=== PATIENT | male | born 1985 | race Caucasian/White ===

== ENCOUNTER 2018-01-27 10:21 | Day surgery (SDC) | payer OTHER ==
[2018-01-27] MEDS ORDERED: LR 1,000 ML IV ONE ×2 (10:47→10:48)
[2018-01-27] MEDS ORDERED: fentaNYL 100 MCG/2 ML INJ ONE (11:47)
[2018-01-27] MEDS ORDERED: PROPOFOL 200 MG/20 ML VIAL ONE ×3 (11:47→12:09)
--- NOTE | 2018-01-27 11:55 | PDGENHP ---
History & Physical Chief Complaint: FHx colon cancer brohter age 42, diarrhrea History of Present Illness: fhx cc brother young age. 2 weeks of diarrhea Pertinent Past, Social, Family History: 1 pp week tobacco. 1 alcohol drink weekly. MMJ. Fhx brother colon cancer age 40. PMH HTN, obesity, bipolar, gerd Relevant Physical Exam: A+Ox3. CTA. S1S2, RRR. +BS, soft nt Cardiorespiratory Assessment: class 3
--- NOTE | 2018-01-27 11:56 | PDANEPAE ---
ANE History of Present Illness colonoscopy ANE Past Medical History - Cardiovascular History Hx Hypertension: No Hx Arrhythmias: No Hx Chest Pain: No Hx Coronary Artery / Peripheral Vascular Disease: No Hx CHF / Valvular Disease: No Hx Palpitations: No Cardiovascular History Comment: ELEVATED BP - NO MEDS - Pulmonary History Hx COPD: No Hx Asthma/Reactive Airway Disease: No Hx Recent Upper Respiratory Infection: No Hx Oxygen in Use at Home: No Hx Sleep Apnea: Yes Sleep Apnea Screening Result - Last Documented: Negative Pulmonary History Comment: INHALER W/URIs. SLEEP APNEA - CPAP - Neurologic History Hx Cerebrovascular Accident: No Hx Seizures: No Hx Dementia: No - Endocrine History Hx Diabetes: No Hypothyroid: No Hyperthyroid: No Obesity: severe - Renal History Hx Renal Disorders: No - Liver History Hx Hepatic Disorders: No Hepatic History Comment: FATTY LIVER - Neurological & Psychiatric Hx Hx Neurological and Psychiatric Disorders: No Neurological / Psychiatric History Comment: ANXIETY. BIPOLAR - Cancer History Hx Cancer: No - Congenital Disorder History Hx Congenital Disorders: No - GI History GERD: severe Hx Gastrointestinal Disorders: Yes Gastrointestinal History Comment: ACID REFLUX - Other Health History Other Health History: NEG - Chronic Pain History Chronic Pain: Yes (KNEE & ANKLE) - Surgical History Prior Surgeries: TONSILLECTOMY ANE Review of Systems Review of Systems: - Exercise capacity METS (RN): 4 METS ANE Patient History - Allergies Allergies/Adverse Reactions: No Known Allergies Allergy (Unverified 01/18/18 14:22) - Home Medications Home Medications: Advil 01/18/18 [Last Taken Unknown] Aleve 01/18/18 [Last Taken Unknown] Claritin 01/18/18 [Last Taken Unknown] Effexor Xr 01/18/18 [Last Taken Unknown] Fish Oil Concentrate Softgel 01/18/18 [Last Taken Unknown] Klonopin 01/18/18 [Last Taken Unknown] Pickwick Carbonate 01/18/18 [Last Taken Unknown] Omeprazole 01/18/18 [Last Taken Unknown] Xanax 01/18/18 [Last Taken Unknown] - NPO status NPO Since - Liquids (Date): 01/27/18 NPO Since - Liquids (Time): 01:00 NPO Since - Solids (Date): 01/26/18 NPO Since - Solids (Time): 19:00 - Smoking Hx Smoking Status: Former smoker - Family Anes Hx Family Hx Anesthesia Complications: NEG ANE Labs/Vital Signs - Vital Signs Blood Pressure: 143/85 Heart Rate: 60 Respiratory Rate: 18 O2 Sat (%): 96 Height: 193.04 cm Weight: 158.757 kg ANE Physical Exam - Airway Neck exam: FROM Mallampati Score: Class 1 Mouth exam: normal dental/mouth exam - Pulmonary Pulmonary: clear to auscultation - Cardiovascular Cardiovascular: regular rate and rhythym ANE Anesthesia Plan Anesthesia Plan: GA with mask
[2018-01-27] MEDS ORDERED: MIDAZOLAM 2 MG/2 ML VIAL ONE (11:57)
[2018-01-27] MEDS ORDERED: NALOXONE HCL 0.4 MG/ML INJ IVP PRN (12:33)
--- NOTE | 2018-01-27 12:42 | GIREPORT ---
[facility] Surgical Services - Endoscopy Department Patient Name: Titi Brennan Procedure Date: 01/27/2018 11:32 AM Patient Type: Outpatient Attending MD/ ER Physician: Vidal Maxwell Procedure: Colonoscopy Indications: Screening in patient at increased risk: Family history of 1st-degree relative with colorectal cancer before age 60 years Providers: Tyler Christina MD Referring MD: Darrell Mauro MD and Jessica Haq MD Medicines: Total IV Anesthesia (TIVA) = IV general without an airway Complications: No immediate complications. Estimated blood loss: Minimal. Description of Procedure: After obtaining informed consent, the scope was passed under direct vis ion. Throughout the procedure, the patient's blood pressure, pulse, and oxyg en saturations were monitored continuously. The Colonoscope with irrigatio n channel was introduced through the anus and advanced to the terminal il eum, with identification of the appendiceal orifice and IC valve. The colono scopy was performed without difficulty. The patient tolerated the procedure w ell. The quality of the bowel preparation was good. Findings: The digital rectal exam was normal. The terminal ileum appeared normal. A 2 mm polyp was found in the ascending colon. The polyp was sessile. T he polyp was removed with a cold biopsy forceps. Resection and retrieval w ere complete. Estimated blood loss was minimal. A 13 mm polyp was found in the proximal transverse colon. The polyp was semi-sessile. The polyp was removed with a cold snare. Resection and retrieval were complete. Estimated blood loss was minimal. Two semi-sessile polyps were found in the mid transverse colon. The michelet yps were 5 to 8 mm in size. These polyps were removed with a cold snare. Resection and retrieval were complete. Estimated blood loss was minimal . A 2 mm polyp was found in the descending colon. The polyp was sessile. The polyp was removed with a cold biopsy forceps. Resection and retrieval w ere complete. Estimated blood loss was minimal. The proximal transverse colon, ascending colon and cecum appeared omari l. Biopsies for histology were taken with a cold forceps from the cecum, ascending colon and right transverse colon for evaluation of microscopi c colitis. Estimated blood loss was minimal. The exam was otherwise without abnormality. Estimated Blood Loss: Estimated blood loss was minimal. Post Op Diagnosis: - The examined portion of the ileum was normal. - One 2 mm polyp in the ascending colon, removed with a cold biopsy for ceps. Resected and retrieved. - One 13 mm polyp in the proximal transverse colon, removed with a cold snare. Resected and retrieved. - Two 5 to 8 mm polyps in the mid transverse colon, removed with a cold snare. Resected and retrieved. - One 2 mm polyp in the descending colon, removed with a cold biopsy forceps. Resected and retrieved. - The proximal transverse colon, ascending colon and cecum are normal. Biopsied. - The examination was otherwise normal. Recommendation: - Await pathology results. - My office will call with the pathology result with 5-7 days. If you h ave not heard from my office by -14, do not assume the pathology is omari l, please call [phone] to get the pathology results. - Repeat colonoscopy in 2 years for surveillance. If genetic syndrome f elt to be negative or unlikely then repeat colonoscopy in 3 years based on pathology results. - Refer to Dr. [facility] given significant FHx - Patient has a contact number available for emergencies. The signs and symptoms of potential delayed complications were discussed with the pat ient. Return to normal activities tomorrow. Written discharge instructions we re provided to the patient. - Continue present medications. - Avoid Aspirin and NSAID's for 7-10 days except as used for cardiac or stroke prevention. - Discharge patient to home (ambulatory). - Resume previous diet. - Return to primary care physician as previously scheduled. - Thank you for allowing me to help in your patient's care. Do not hesi pierce to call with any questions. Attending Participation: I personally performed the entire procedure. Sanford Scott M.D Tyler Christina MD 01/27/2018 12:41:40 PM This report has been signed electronicallyMathew MD Sanford Number of Addenda: 0 Note Initiated On: 01/27/2018 11:32 AM Total Procedure Duration Time 0 hours 26 minutes 13 seconds [email or web address]
[2018-01-27 13:34] VITALS: BP 125/82
--- NOTE | 2018-01-29 10:33 | POSTANESTH ---
Post Anesthetic Evaluation Cardiovascular Status: Normal, Stable Respiratory Status: Similar to Pre-op Cond. Level of Consciousness/Mental Status: Can Participate in Eval Pain Control: Adequate, Prn Tx Ordered Nausea/Vomiting Control: Adequate, Prn Tx Ordered Complications Possibly Related to Anesthesia: None Noted
== END 2018-01-27 13:45 | disposition home or self-care (01) ==
LOC: FSGY 10:21
PROVIDERS: ATTEND Internal Medicine Gastroenterology
PROC: 0DBL8ZX Excision of Transverse Colon, Via Natural or Artificial Opening Endoscopic, Diagnostic (ICD-10-PCS; principal; 2018-01-27 12:00)
PROC: 0DBK8ZX Excision of Ascending Colon, Via Natural or Artificial Opening Endoscopic, Diagnostic (ICD-10-PCS; principal; 2018-01-27 12:00)
PROC: 0DBM8ZX Excision of Descending Colon, Via Natural or Artificial Opening Endoscopic, Diagnostic (ICD-10-PCS; principal; 2018-01-27 12:00)
DX: Z12.11 Encounter for screening for malignant neoplasm of colon (principal); D12.3 Benign neoplasm of transverse colon; D12.2 Benign neoplasm of ascending colon; K63.5 Polyp of colon; R19.7 Diarrhea, unspecified; K21.9 Gastro-esophageal reflux disease without esophagitis; I10 Essential (primary) hypertension; E66.9 Obesity, unspecified; F31.9 Bipolar disorder, unspecified; G47.33 Obstructive sleep apnea (adult) (pediatric); Z87.891 Personal history of nicotine dependence; Z80.0 Family history of malignant neoplasm of digestive organs
CPT/HCPCS: J2250; J2704; J3010

== ENCOUNTER → 2018-10-25 | Outpatient (CLI) | payer BC | LOC: CIMAGING 10:11 | PROVIDERS: ATTEND Internal Medicine Nephrology | DX: R80.8 Other proteinuria (principal) | CPT/HCPCS: 76770-PO ==